=== PATIENT | female | born 1945 | race Caucasian/White ===

== ENCOUNTER 2024-01-14 21:05 | Emergency (ER) | payer MEDICARE, BC, SELFPAY ==
[2024-01-14 21:06] VITALS: BMI 27.4
[2024-01-14 21:08] VITALS: BP 175/92
[2024-01-14 21:36] VITALS: BP 151/71
[2024-01-14 22:07] LABS: % Basophils 0.5 % (0-2); % Eosinophils 3.8 % (0-6); % Immature Granulocytes 0.3 % (0-0.5); % Lymphocytes 23.1 % (20.5-51.1); % Monocytes 10.4 % (1.7-9.3); % Neutrophils 61.9 % (42.2-75.2); Absolute Eosinophils 0.3 10^3/uL (0-0.7); Absolute Lymphocytes 1.7 10^3/uL (1.2-3.4); Absolute Monocytes 0.8 10^3/uL (0.1-0.6); Absolute Neutrophils 4.5 10^3/uL (1.4-6.5); Hematocrit 38.2 % (37.0-47.0); Hemoglobin 13.7 g/dL (12.0-16.0); Mean Corp Hgb Conc. 35.9 g/dL (33.0-37.0); Mean Corpuscular Hgb 31.1 pg (27.0-31.0); Mean Corpuscular Volume 86.6 fL (81.0-99.0); Mean Platelet Volume 9.8 fL (7.4-10.4); Nucleated Red Blood Cells % 0 %; Platelet Count 242 10^3/uL (130-400); Red Blood Cell Count 4.41 10^6/uL (4.20-5.40); Red Cell Dist. Width 13.2 % (11.5-14.5); White Blood Cell Count 7.3 10^3/uL (4.8-10.8)
[2024-01-14] MEDS: DECADRON 8 MG IV (22:14)
[2024-01-14] MEDS: NSS 500 IV (22:14)
[2024-01-14] MEDS: DUONEB 3 ML INH (22:14)
[2024-01-14 22:22] LABS: Blood Urea Nitrogen 12 mg/dl (7-17); Calcium 9.5 mg/dl (8.4-10.2); Carbon Dioxide 25 mmol/L (22-30); Chloride 108 mmol/L (98-107); Glucose 102 mg/dl (70-99); Potassium 3.5 mmol/L (3.5-5.1); Sodium 141 mmol/L (135-145); eGFR > 60.00
[2024-01-14 22:36] LABS: COVID-19 Antigen Negative (Negative)
--- NOTE | 2024-01-14 23:45 | ED.GENMED ---
History of Present Illness
General
Chief Complaint: Breathing Problem
Time Seen by Provider: 01/14/24 21:25
Travel History
Have you had any contact with someone who has COVID-19?: No
Do you have any symptoms of coronavirus? Fever > 100 degrees, chills, cough, shortness of breath, sore throat, loss of taste or smell, muscle aches, or headache?: No
History of Present Illness
History of Present Illness:
Patient started with cold sinus symptoms about 36 hours ago. Then developed into cough congestion some shortness of breath. This is typical for the patient.
Past History
Past History
ED Past Medical History: Asthma, COPD, HTN, Psychiatric and Other
ED Past Surgical History: Appendectomy and Cholecystectomy
Social History
Tobacco: Non-smoker
Alcohol: None
Personal:
Living: with family
Employment: Employed
Family History
Family History: Other (Noncontributory)
Phy Exam
Physical Exam
Physical Exam:
GENERAL: Alert and oriented in no apparent distress
EYE: Orbits normal.
NECK: Supple
ENT: Pharynx without erythema
CARDIAC: Regular rate and rhythm without any obvious murmurs.
LUNGS: Clear breath sounds,normal
ABDOMEN: Soft, without focal tenderness or distention
NEUROLOGICAL: Alert and oriented , grossly non-focal
SKIN: Warm and dry, no rash or lesion, no discoloration, skin intact.
MUSCULOSKELETAL: No edema,no deformity.Good color
PSYCH: Normal and appropriate interaction.
Scores
Heart Failure Risk
Heart Failure Risk Score: Not Applicable
Course
Orders/Labs/Results
Orders:
Orders
01/14/24 21:40
IV Insert/Care/Rem.- Treatment PRN
0.9% Sodium Chloride 500 ml [Nss] 500 ml IV BOLUS
Dexamethasone Sod Phosphate [Decadron] 8 mg IV NOW STA
Ipratropium/Albuterol Sulfate [Duoneb] 3 ml INH R NOW STA
CR Chest - 2 Views Urgent
Comment:
Reason For Exam: cough
01/14/24 21:58
Basic Metabolic Panel Urgent
01/14/24 22:00
COVID-19 Antigen Urgent
Source: Nasal Swab
Complete Blood Count/With Diff Urgent
Influenza A+B Rapid Molecular Urgent
JANIS Source: Nasal Swab
Specimen Description:
01/14/24 22:19
RSV [Respiratory Syncytial Virus] Urgent
JANIS Source: Nasal Swab
Specimen Description:
Date Specimen was Collected: 01/14/24
Time Specimen was Collected: 22:18
01/14/24 23:44
Doxycycline [Vibramycin] 100 mg PO NOW STA
Abnormal Lab Results
01/14/24 01/14/24
21:58 22:00
MCH 31.1 H pg
(27.0-31.0)
Absolute Monos (auto) 0.8 H 10^3/uL
(0.1-0.6)
Monocytes % 10.4 H %
(1.7-9.3)
Chloride 108 H mmol/L
(98-107)
Glucose 102 H mg/dl
(70-99)
01/14/24 22:00
01/14/24 21:58
Vital Signs
Initial and Last Documented VS:
Initial Vital Signs
Temp Pulse Resp BP Pulse Ox
99.4 F 96 22 175/92 98
01/14/24 21:08 01/14/24 21:08 01/14/24 21:08 01/14/24 21:08 01/14/24 21:08
Last Documented Vital Signs
Temp Pulse Resp BP Pulse Ox
98.5 F 100 24 174/78 94
01/15/24 00:15 01/15/24 00:15 01/15/24 00:15 01/15/24 00:15 01/15/24 00:15
*Critical Care Note
Total Time (30-74mins, 75-104mins- exclusive of procedures): Not Applicable
Update Note
Update Note:
Patient felt lightheaded and tachycardic during the treatment. Feels better now. Borderline tachycardia. Pulse ox 93 to 97%. No respiratory distress. Nothing to support pulmonary emboli. Will cover with steroids antibiotics inhalers to
follow-up
ED Attending Note
-
Portions of this chart may have been created with voice recognition software.� Occasional wrong word or��sound alike� substitutions may have occurred due to the inherent limitations of voice recognition software.
Discharge Plan
Departure
Patient Disposition: Home (Routine Discharge)
Date of Disposition: 01/14/24
Time of Disposition: 23:45
Patient with high blood pressure during this ER visit?: Yes
Discharge Problem:
Acute bronchitis
Instructions: Acute Bronchitis, Adult (DC), BLOOD PRESSURE
Prescriptions:
New
albuterol sulfate [ProAir HFA] 90 mcg/actuation HFA aerosol inhaler
2 puff inhalation Q4HPRN PRN (Reason: shortness of breath) Qty: 8.5 0RF
doxycycline hyclate 100 mg capsule
100 mg PO BID 10 Days Qty: 20 0RF
prednisone 10 mg tablet
10 mg PO DAILY Qty: 20 0RF
Rx Instructions:
4 tablets day 1. Then 1 less tablet every other day until gone
No Action
levalbuterol tartrate 1 PUFF HFA aerosol inhaler
1 puff inhalation PRN PRN (Reason: shortness of breath)
mometasone [Nasonex] 17 GRAM spray,non-aerosol
1 spray intranasal PRN PRN (Reason: decongestent)
prednisone 20 MG tablet
40 mg PO DAILY
Dulera 200 mcg/5 mcg Inhaler
prednisone 10 MG tablet
10 mg PO DAILY Qty: 0 0RF
Rx Instructions:
4 pills daily x 3 days, 3 pills daily x 3 days, 2 pills daily x 3 days, 1 pill daily x 3 days. dispense #30 pills
amoxicillin-pot clavulanate 875 MG/125 MG tablet
1 tab PO Q12 Qty: 20 0RF
Referrals:
Jag Felton MD [Family Provider] - Follow up in 2-3 days
Interventions
Interventions:
*Risk Screen - Suicide Last Done: 01/14/24 21:08
*General Assessment Last Done: 01/14/24 22:23
*Neglect/Abuse Screening Last Done: 01/14/24 21:08
ED- Fall Risk Assessment Last Done: 01/14/24 22:28
*ED COVID-19 Vaccine History Last Done: 01/14/24 22:23
*Nursing Disposition Last Done: 01/15/24 00:15
ED- Cardiac Assessment Last Done: 01/14/24 22:25
ED- Pulmonary Assessment Last Done: 01/14/24 22:25
Discharge Date and Time
Discharge Date/Time: 01/15/24 00:16
Print Language: POLISH
[2024-01-14] MEDS: VIBRAMYCIN 100 MG PO (23:59)
[2024-01-15 00:15] VITALS: BP 174/78
== END 2024-01-15 00:16 | disposition home or self-care (01) ==
LOC: EMR 21:05
PROVIDERS: EMERGENCY PHYSICIAN Emergency Medicine; FAMILY PHYSICIAN Internal Medicine
DX: J20.9 Acute bronchitis, unspecified (principal); I10 Essential (primary) hypertension
CPT/HCPCS: 99284; 96374; 96361 ×2; 94640; 71046; 80048; 85025; 87502; 87807; 87811